=== PATIENT | male | born 1990 | race Caucasian/White ===

== ENCOUNTER 2021-08-11 08:39 | Emergency (ER) | payer OTHER ==
--- NOTE | 2021-08-11 09:10 | ED Physician Documentation ---
PD HPI UPPER EXT INJURY - Stated complaint Stated Complaint: LT WRIST PX - Chief complaint Chief Complaint: Ext Problem - History obtained from History obtained from: Patient - History of Present Illness Location: Left, Wrist Type of injury: Twist (lifting heavy object, felt crack in wrist, with pain on ROM.) Timing - onset: Yesterday Timing - duration: Days (1) Timing - details: Abrupt onset, Still present Worsened by: Moving, Palpating Associated symptoms: Swelling (mild dorsal ulnar aspect of wrist.). No: Weakness, Numbness, Discolored Similar symptoms before: Has not had sx before Review of Systems Constitutional: denies: Fever, Chills Nose: denies: Rhinorrhea / runny nose, Congestion Throat: denies: Sore throat Respiratory: denies: Cough Skin: denies: Rash, Lesions Neurologic: denies: Focal weakness, Numbness PD PAST MEDICAL HISTORY - Past Medical History Cardiovascular: None Respiratory: None Musculoskeletal: None - Present Medications Home Medications: Ambulatory Orders Medication Instructions Recorded Confirmed No Known Home Medications 08/11/21 08/11/21 - Allergies Allergies/Adverse Reactions: Allergies Allergy/AdvReac Type Severity Reaction Status Date / Time No Known Drug Allergies Allergy Verified 08/11/21 08:49 PD ED PE NORMAL - Vitals Vital signs reviewed: Yes - General General: Alert and oriented X 3, No acute distress, Well developed/nourished - Derm Derm: Normal color, Warm and dry, No rash - Extremities Extremities: Other (left wrist with tenderness dorsal ulnar aspect. No noted laxity on ROM of the wrist. Sn[employer]box not tender. ) - Neuro Neuro: No motor deficit, No sensory deficit Results - Vitals Vitals: Vital Signs - 24 hr 08/11/21 08/11/21 08:50 10:14 Temperature 37.0 C Heart Rate 68 75 Respiratory 19 18 Rate Blood Pressure 131/75 H 125/75 O2 Saturation 97 99 Oxygen O2 Source Room air - Rads (name of study) left wrist Radiology: Prelim report reviewed (no fracture nor acute bony abnormality.), See rad report PD MEDICAL DECISION MAKING - ED course Complexity details: reviewed results, considered differential (xray normal. Presume strain of wrist. Can treat with velcro spint, NSAIDs, less use. ), d/w patient Departure - Departure Disposition: 01 Home, Self Care Clinical Impression: Left wrist sprain Qualifiers: Encounter type: initial encounter Qualified Code(s): S63.502A - Unspecified sprain of left wrist, initial encounter Condition: Stable Record reviewed to determine appropriate education?: Yes Instructions: ED Sprain Wrist Follow-Up: NITIN CUEVAS III, MD [Primary Care Provider] - Comments: Your x-ray appears normal without any fractures or dislocations. Presume you have a sprain of some of the ligaments or muscle tendons in the wrist. This should improve with time and protection. Use Velcro wrist splint for the next several days to week to help guard motion at the wrist. Light activity only with the wrist for the next several days to week. Consider anti-inflammatory such as ibuprofen 400 to 600 mg 3 times daily with food for the next week. Recheck if not improving well over the next week and resolved by 7 to 10 days. At that point resume normal activity if doing okay Forms: Activity restrictions Discharge Date/Time: 08/11/21 10:15
--- NOTE | 2021-08-11 09:46 | XRAY Report ---
PROCEDURE: Wrist 4 View LT INDICATIONS: Trauma TECHNIQUE: 4 views of the wrist were acquired. COMPARISON: None FINDINGS: Bones: No fractures or dislocations. No suspicious bony lesions. Scaphoid view: Negative Soft tissues: No suspicious soft tissue calcifications. IMPRESSION: No acute fracture. No osseous lesion. If symptoms and/or clinical suspicion for pathology continue, f urther assessment with repeat plain films, or advanced imaging (e.g., CT, MRI, or bone scan) is recom mended for further assessment. Reviewed by: Porfirio Modi MD on 08/11/2021 9:44 AM PDT Approved by: Porfirio Modi MD on 08/11/2021 9:44 AM PDT Station ID: [id number]
[2021-08-11] MEDS ORDERED: IBUPROFEN 600 MG TABLET PO STA (09:51)
[2021-08-11 10:15] VITALS: BP 125/75
== END 2021-08-11 10:15 | disposition home or self-care (01) ==
LOC: ED 08:39
DX: S63.502A Unspecified sprain of left wrist, initial encounter (principal); X50.0XXA Overexertion from strenuous movement or load, initial encounter; Y93.B9 Activity, other involving muscle strengthening exercises
CPT/HCPCS: 73110; 99282; 99283; A9270